=== PATIENT | female | born 1945 | race Caucasian/White ===

== ENCOUNTER 2017-11-14 08:25 | Emergency (ER) | payer MEDICARE, OTHER ==
[~2017-11-14] VITALS: Ht 157.5 cm; Wt 77.7 kg
[~2017-11-14 08:25] MED LIST: AMLO1CAP PO; DOCU250C91 PO; FERR324T4 PO; INDO50 PO; INSLAN SQ; METO25TA6 PO
[2017-11-14 08:58] LABS: GLUCOSE,POINT OF CARE 261 MG/DL (70-110)
[2017-11-14] MEDS ORDERED: PERTUSS(ACELL),DIPH,TET VAC/PF 0.5 ML VIAL IM ONE (09:00)
[2017-11-14] MEDS ORDERED: ACETAMINOPHEN 500 MG TABLET PO ONE (09:00)
[2017-11-14 12:22] VITALS: BP 142/64
== END 2017-11-14 12:31 | disposition home or self-care (01) ==
LOC: EMS 08:32
DX: S01.01XA Laceration without foreign body of scalp, initial encounter (principal); S80.02XA Contusion of left knee, initial encounter; S19.9XXA Unspecified injury of neck, initial encounter; E11.9 Type 2 diabetes mellitus without complications; I10 Essential (primary) hypertension; Z86.73 Personal history of transient ischemic attack (TIA), and cerebral infarction without residual deficits; Z79.4 Long term (current) use of insulin; W18.30XA Fall on same level, unspecified, initial encounter; Y93.89 Activity, other specified; Y92.89 Other specified places as the place of occurrence of the external cause; Y99.8 Other external cause status
CPT/HCPCS: 70450; 72125; 82962; 90471; 90715; 99284

== ENCOUNTER 2019-07-14 15:36 | Emergency (ER) | payer MEDICARE, OTHER ==
[~2019-07-14] VITALS: Ht 167.6 cm; Wt 77.3 kg
[~2019-07-14 15:36] MED LIST changes: -INDO50 PO; +INDO50CA97 PO
[2019-07-14] MEDS ORDERED: SAXA5TAB PO (15:55)
[2019-07-14] MEDS ORDERED: METF-960 PO (15:55)
[2019-07-14] MEDS ORDERED: GLIP10 PO (15:55)
[2019-07-14] MEDS ORDERED: ASPI81 PO (15:55)
[2019-07-14] MEDS ORDERED: DULA1.5P SQ (15:55)
[2019-07-14] MEDS ORDERED: OMEP20 PO (15:55)
[2019-07-14 16:01] LABS: GLUCOSE,POINT OF CARE 153 MG/DL (70-110)
[2019-07-14] MEDS ORDERED: PB/HYOSCY/ATR/SCOP/LIDO/MAALOX 55 ML BOTTLE PO ONE (16:45)
[2019-07-14] MEDS ORDERED: AZITHROMYCIN 250 MG TABLET PO ONE (20:00)
[2019-07-14 20:37] VITALS: BP 166/88
== END 2019-07-14 22:21 | disposition home or self-care (01) ==
LOC: EMS 15:38
DX: J02.9 Acute pharyngitis, unspecified (principal); E11.9 Type 2 diabetes mellitus without complications; I10 Essential (primary) hypertension; Z86.73 Personal history of transient ischemic attack (TIA), and cerebral infarction without residual deficits; Z79.84 Long term (current) use of oral hypoglycemic drugs; Z79.82 Long term (current) use of aspirin